=== PATIENT | male | born 1940 | race Caucasian/White ===

== ENCOUNTER 2016-09-09 15:00 | Inpatient (IN) | payer MEDICARE, BC ==
[~2016-09-09] VITALS: Ht 170.2 cm; Wt 74.8 kg
[~2016-09-09 15:00] MED LIST: ASPI325T6 PO; ASPIRIN E.C. 8181 MG PO; FLOMAX 0.40.4 MG/CAP PO; GLUCOPHAGE1000 MG PO; LIPITOR20 MG PO; MOBIC15 MG PO; NEURONTIN300 MG/CAP PO; NITROSTAT0.4 MG/TAB SL; NORCO 325 MG-51 TAB PO; NORCO 325 MG-7.1 TAB PO; PROTONIX 40MG T40 MG PO; TENORMIN 5050 MG/TAB PO; ZESTRIL 10MG10 MG PO
[2016-10-20] VITALS (11 sets, daily range): BP systolic 118–150; BP diastolic 69–90; PULSE 52–98; TEMP 97.1–97.4
[2016-10-20] MEDS ORDERED: ASPI325T6 PO (08:54)
[2016-10-20] MEDS ORDERED: ZOLOFT 50MG50 MG PO (08:59)
[2016-10-20] MEDS ORDERED: B-12 500 MCG PO (09:00)
[2016-10-20] MEDS ORDERED: ASPIRIN E.C. 8181 MG PO (09:01)
[2016-10-21 03:36] VITALS: BP 132/61; PULSE 65; TEMP 98.3
[2016-10-21 06:13] LABS: HEMOGLOBIN 12.1 g/dl (13.5-18.0)
[2016-10-21 06:23] LABS: HEMATOCRIT 35.3 % (42.0-52.0)
[2016-10-21 07:21] VITALS: BP 146/87; PULSE 66; TEMP 98.2
[2016-10-21 12:32] VITALS: BP 158/93; PULSE 68; TEMP 97.6
== END 2016-10-21 16:10 | disposition home or self-care (01) | DRG 483 ==
LOC: JCC 10-16 07:30
PROVIDERS: Orthopaedic Surgery
PROC: 0RRK00Z Replacement of Left Shoulder Joint with Reverse Ball and Socket Synthetic Substitute, Open Approach (ICD-10-PCS; principal; 2016-10-20 07:30)
PROC: 0RPK0JZ Removal of Synthetic Substitute from Left Shoulder Joint, Open Approach (ICD-10-PCS; principal; 2016-10-20 07:30)
DX: T84.84XA Pain due to internal orthopedic prosthetic devices, implants and grafts, initial encounter (principal); Z96.612 Presence of left artificial shoulder joint; I25.10 Atherosclerotic heart disease of native coronary artery without angina pectoris; J44.9 Chronic obstructive pulmonary disease, unspecified; E11.9 Type 2 diabetes mellitus without complications; I10 Essential (primary) hypertension; F17.210 Nicotine dependence, cigarettes, uncomplicated
CPT/HCPCS: A4566; A9284; C1713; C1776; J0360; J0690; J1885; J2250; J2270; J2704; J2795; J7030